=== PATIENT | male | born 2000 | race Caucasian/White ===

== ENCOUNTER 2018-05-15 20:36 | Emergency (ER) | payer SELFPAY ==
[~2018-05-15] VITALS: Ht 170.2 cm; Wt 61.4 kg
[2018-05-15 20:45] VITALS: BP 106/78
[2018-05-15 21:10] LABS: HEMATOCRIT 51.2 % (41-53); HEMOGLOBIN 17.9 g/dL (13.5-17.5); MEAN CORPUSCULAR HEMOGLOBIN 32.6 pg (26.0-34.0); MEAN CORPUSCULAR VOLUME 93 fL (80-100); PLATELET COUNT (AUTO) 334 K/uL (150-450); RED CELL DISTRIBUTION WIDTH 12.6 % (11.5-14.5)
[2018-05-15 21:32] LABS: CALCIUM, TOTAL 10.4 mg/dL (8.8-10.5); CREATININE 1.8 mg/dL (0.60-1.30); POTASSIUM 3.7 mmol/L (3.5-5.1)
[2018-05-15 21:40] LABS: ALBUMIN 5.1 g/dL (3.4-5.0); BILIRUBIN,TOTAL 2.4 mg/dL (0.1-1.0); TOTAL PROTEIN, SERUM 8.8 g/dL (6.4-8.2)
[2018-05-15 21:58] LABS: BAND NEUTROPHILS % (MANUAL) 37 % (0-5); BASOPHILS % (MANUAL) 1 % (0-2); LYMPHOCYTES % (MANUAL) 4 % (22-44); MONOCYTES % (MANUAL) 5 % (2-9); SEGMENTED NEUTROPHILS % 53 % (40-70)
== END 2018-05-16 02:01 | disposition left against medical advice (07) ==
LOC: EMS 20:37
DX: R10.10 Upper abdominal pain, unspecified (principal); R11.2 Nausea with vomiting, unspecified; R51 Headache; Z53.21 Procedure and treatment not carried out due to patient leaving prior to being seen by health care provider
CPT/HCPCS: 99281